=== PATIENT | male | born 1990 | race Caucasian/White ===

== ENCOUNTER 2016-11-19 21:24 | Emergency (ER) | payer BC, OTHER ==
[2016-11-19] MEDS ORDERED: Diphtheria,Pertussis(Acell),Tetanus Vaccine 0.5 ML Syringe IM ONE (21:46)
[2016-11-19] MEDS: Lidocaine 1% 20 ML MDV INJECT ONE ×2 (22:00→22:19)
[2016-11-19] MEDS: Bacitracin Oint 1 GM U/D Packet TOP ONE ×2 (22:00→22:19)
[2016-11-19] MEDS ORDERED: Octyl 2-Cyanoacrylate 1 Tube TOP ONE (22:16)
[2016-11-19] MEDS ORDERED: Octyl 2-Cyanoacrylate 1 Tube ONE (22:17)
--- NOTE | 2016-11-19 22:26 | EDM.PDOC ---
ED HPI GENERAL MEDICAL PROBLEM - General Chief Complaint: Laceration Stated Complaint: CUT ON LEFT INDEX FINGER Time Seen by Provider: 11/19/16 22:22 - History of Present Illness INITIAL COMMENTS - FREE TEXT/NARRATIVE: He accidentally cut himself left tip palmar/volar index finger this evening with a clean knife. no other injury left index Pain Score (Numeric/FACES): 8 - Related Data Allergies Allergy/AdvReac Type Severity Reaction Status Date / Time amoxicillin Allergy Hives Verified 11/19/16 21:35 Penicillins Allergy Hives Verified 11/19/16 21:35 Sulfa (Sulfonamide Allergy Hives Verified 11/19/16 21:35 Antibiotics) Home Meds: Home Meds . [No Known Home Meds] 11/19/16 [History] Past Medical History HEENT History: Reports: None Cardiovascular History: Reports: None Respiratory History: Reports: None Gastrointestinal History: Reports: None Genitourinary History: Reports: None Musculoskeletal History: Reports: None Neurological History: Reports: None Psychiatric History: Reports: None Endocrine/Metabolic History: Reports: None Hematologic History: Reports: None Immunologic History: Reports: None Oncologic (Cancer) History: Reports: None Dermatologic History: Reports: None - Infectious Disease History Infectious Disease History: Reports: None - Past Surgical History Head Surgeries/Procedures: Reports: None Social & Family History - Family History Family Medical History: Noncontributory - Tobacco Use Smoking Status *Q: Never Smoker - Caffeine Use Caffeine Use: Reports: Soda - Recreational Drug Use Recreational Drug Use: No ED ROS GENERAL - Review of Systems Review Of Systems: See Below (no other injury) ED EXAM, SKIN/RASH Exam: See Below Text/Narrative:: left index finger; volar aspect with a 1 cm transverse laceration ; normal tendon function; wound edges by about one millimeter. after thorough local cleansing, the wound edges are reapproximated with tissue adhesive. finger splint given to use for the next seven days. Course - Vital Signs Last Recorded V/S: Last Vital Signs Temp 97.6 F 11/19/16 21:35 Pulse 88 11/19/16 21:35 Resp 18 11/19/16 21:35 BP 118/69 11/19/16 21:35 Pulse Ox 98 11/19/16 21:35 - Orders/Labs/Meds Orders: Active Orders 24 hr Category Date Time Status Vaccines to be Administered [RC] PER UNIT ROUTINE Care 11/19/16 21:46 Active Meds: Medications Discontinued Medications Generic Name Dose Route Start Last Admin Trade Name Aliza PRN Reason Stop Dose Admin Bacitracin 1 dose 11/19/16 21:38 11/19/16 22:19 Bacitracin Oint 1 Gm TOP 11/19/16 21:39 Not Given ONETIME ONE Diphtheria/Tetanus/Acell Pertussis 0.5 ml 11/19/16 21:46 11/19/16 21:59 Adacel IM 11/19/16 21:47 0.5 ml .ONCE ONE Administration Lidocaine HCl 20 ml 11/19/16 21:38 11/19/16 22:19 Xylocaine 1% INJECT 11/19/16 21:39 Not Given ONETIME ONE Octyl Cyanoacrylate 1 applic 11/19/16 22:16 11/19/16 22:29 Dermabond Advance TOP 11/19/16 22:17 1 applic ONETIME ONE Administration Octyl Cyanoacrylate Confirm 11/19/16 22:17 11/19/16 22:30 Dermabond Advance Administered 11/19/16 22:18 Not Given Dose 1 applic .ROUTE .STK-MED ONE Departure - Departure Time of Disposition: 22:33 Disposition: Home, Self-Care 01 Condition: Good Clinical Impression: Laceration - Discharge Information Referrals: PCP,None [Primary Care Provider] - Forms: ED Department Discharge Additional Instructions: recheck for signs of infection use fingertip splint for about a week. - My Orders Last 24 Hours: My Active Orders 11/19/16 21:46 Vaccines to be Administered [RC] PER UNIT ROUTINE - Assessment/Plan Last 24 Hours: My Active Orders 11/19/16 21:46 Vaccines to be Administered [RC] PER UNIT ROUTINE
[2016-11-19 22:45] VITALS: BP 120/65
== END 2016-11-19 22:43 | disposition home or self-care (01) ==
LOC: MW.ED 21:24
DX: S61.211A Laceration without foreign body of left index finger without damage to nail, initial encounter (principal); Z23 Encounter for immunization; Z88.0 Allergy status to penicillin; Z88.1 Allergy status to other antibiotic agents; Z88.2 Allergy status to sulfonamides; W26.0XXA Contact with knife, initial encounter
CPT/HCPCS: 12001; 90471; 90715; 99282; A9270